=== PATIENT | male | born 1960 | race Caucasian/White ===

== ENCOUNTER 2019-08-25 03:55 | Emergency (ER) | payer OTHER ==
[~2019-08-25] VITALS: Ht 193 cm; Wt 97.5 kg
--- NOTE | 2019-08-25 04:00 | NUR ---
ED Nurse Note: Pt came in to ED c/o lower abdominal pain x few week. Pt diagnosed with shigella and finished with atb (flagyl, cipro) cycle. Denies nausea. Vomited x1 yesterday. Pt also c/o left foot pain x4 days after hitting the table. VSS pt has notable redness/purple color on L foot big toe
--- NOTE | 2019-08-25 04:21 | Emergency Room Report ---
History of Present Illness General Chief Complaint: Abdominal Pain Source: Patient Present Illness HPI Disclaimer: Please note that this report is being documented using [employer] technology. This can lead to erroneous entry secondary to incorrect interpretation by the dictating instrument. HPI: 58-year-old male presents for evaluation abdominal pain, diarrhea and left foot pain. Patient is complaining of diffuse abdominal pain, cramping, diarrhea since the end of June. He was diagnosed with Shigella and recently finished a course of ciprofloxacin and Flagyl 1 week ago. States his symptoms resolved until 2 days ago when his abdominal cramping and diarrhea returned. While trying to run to the bathroom he tripped and fell falling onto his left foot. Noted pain and swelling and difficulty standing. He was only able to bear weight today to get to the emergency department. Denies any pain in the ankle, knee or hip and no other injury sustained. Patient is requesting repeat testing for Shigella and for C. difficile as well. He does not want to go back to his D as it is very far away and he is recently moved. He denies vomiting, nausea, fever, chills. He does report some fatigue as he states he has had some weight loss over the treatment course of Shigella but otherwise denies any new symptoms. He denies chest pain or shortness of breath, cough, rash. Allergies: Coded Allergies: No Known Allergies (Unverified , 08/25/19) Nursing Documentation-[facility] Hx Hypertension: Yes Review of Systems All Other Systems: negative except mentioned in HPI Physical Exam Vital Signs Date Time Temp Pulse Resp B/P (MAP) Pulse Ox O2 Delivery O2 Flow Rate FiO2 08/25/19 03:58 98.1 95 20 158/83 (108) 96 Room Air General: Awake and alert, no acute distress HEENT: NC/AT. EOMI. Resp: Normal work of breathing Abdomen: Soft, nondistended. Diffuse tenderness lower quadrants, mild. No rebound. No peritoneal signs MSK: Normal tone and bulk. Moving all extremities. There is extensive ecchymosis over the proximal phalanx of the great toe of the left foot with bruising around the midfoot region and tenderness palpation. There is no obvious deformity. Difficulty with bearing weight. No tenderness over the medial or lateral malleolus, no edema. No tenderness in the knee or hip. Neuro: Awake and alert. Mentating appropriately Medical Decision Making Diagnostic Impression: Primary Impression: Diarrhea Additional Impression: Metatarsal fracture ER Course 58-year-old male presents for abdominal pain, diarrhea as well as left foot pain after a fall several days ago. Concern for fracture at this time given the appearance of the foot and for possible incomplete treatment of the Shigella or secondary C. difficile from treatment with ciprofloxacin and Flagyl. He states he took a lot of probiotics as instructed while taking the medications. He denies any bloody diarrhea but does note some increased flatulence, mucoid appearance to it and worsening cramping abdominal pain over the past few days. He is requesting repeat testing at our facility as opposed to his PMD which we will accommodate. Foot x-ray concerning for a possible second metatarsal fracture and possibly first as well. Will place in hard soled postop boot and provide cane for stability. Patient will follow-up on his stool cultures if not contacted by us directly. He is looking for a new PMD. Some numbers provided in his paperwork. Discussed reasons to return to the emergency department. He understands and agrees with treatment plan. Last Vital Signs Date Time Temp Pulse Resp B/P (MAP) Pulse Ox O2 Delivery O2 Flow Rate FiO2 08/25/19 03:58 98.1 95 20 158/83 (108) 96 Room Air Disposition: HOME, SELF-CARE Condition: Stable Scripts Hydrocodone Bit/Acetaminophen 7.5-325* (NORCO 7.5-325*) 1 Each Tablet 1 TAB ORAL Q6H PRN for For Pain, #10 TAB 0 Refills Prov: Matheus Kovacs MD 08/25/19 Ibuprofen* (MOTRIN*) 600 Mg Tablet 600 MG ORAL Q8H PRN for For Pain, #30 TAB 0 Refills Prov: Matheus Kovacs MD 08/25/19 Referrals: NON PHYSICIAN (PCP) Matheus Kovacs MD Aug 25, 2019 04:21
[2019-08-25] MEDS ORDERED: HYDROcodone/Acetamin 7.5/325 tab ORAL ONE (04:30)
[2019-08-25 04:32] VITALS: BP 158/83
[2019-08-25] MEDS ORDERED: IBUPROFEN600 MG ORAL (06:30)
[2019-08-25] MEDS ORDERED: NORCO 7.5-3251 EACH ORAL (06:30)
[2019-08-25 06:35] VITALS: BP 158/83
--- NOTE | 2019-08-25 06:35 | NUR ---
ER DISCHARGE NOTE: Patient is cleared to be discharged per ERMD, pt is aox4, on room air, with stable vital signs. pt was given dc and prescription instructions, pt was able to verbalize understanding, pt id band removed. pt is able to ambulate with steady gait. pt took all belongings.
--- NOTE | 2019-08-25 14:22 | Diagnostic Imaging Report ---
Indication: Pain in left foot after twisting it Technique: 3 views left foot Comparison: none Findings: Exam is limited due to lack of a lateral view. No definite acute fractures. No dislocations. The joint spaces are preserved. Impression: Limited exam, due to lack of true lateral view No definite acute bony trauma
== END 2019-08-25 06:35 | disposition home or self-care (01) ==
LOC: EMR 04:15
DX: S92.312A Displaced fracture of first metatarsal bone, left foot, initial encounter for closed fracture (principal); R19.7 Diarrhea, unspecified; W01.0XXA Fall on same level from slipping, tripping and stumbling without subsequent striking against object, initial encounter; Y93.02 Activity, running; Y92.019 Unspecified place in single-family (private) house as the place of occurrence of the external cause; I10 Essential (primary) hypertension
CPT/HCPCS: 73630; 87045; 87324; Z7502; 87427; 99283